=== PATIENT | female | born 1960 | race Caucasian/White ===

== ENCOUNTER 2016-07-31 20:54 | Emergency (ER) | payer OTHER ==
[~2016-07-31] VITALS: Ht 162.5 cm; Wt 67.1 kg
[~2016-07-31 20:54] MED LIST: ATIVAN1 MG PO; BLOOD PRESSURE MED; CELEXA40 MG PO; COLACE100 MG PO; FLEXERIL10 MG PO; FLEXERIL5 MG PO; GEODON20 MG PO; HYDROCODONE BIT1 T11 PO; LAMICTAL200 MG PO; MEDROL DOSEPAK4 MG PO; NORCO 325 MG-51 TAB PO; OXYCODONE5 MG PO; PREDNISONE20 MG PO; SYNTHROID0.1 MG PO; TOPAMAX25 M1 PO; TRAMADOL HCL50 MG PO; ULTRAM50 MG PO; VALIUM10 MG PO; VICODIN 5/500 505 MG; VICODIN 5/500 505 MG PO; XANAX XR1 MG; XANAX0.5 MG PO; XANAX1 MG PO; ZESTRIL10 MG PO; Zofran4 MG PO
[2016-07-31] MEDS ORDERED: 'XANAX1 MG PO (21:03)
== END 2016-07-31 22:18 | disposition home or self-care (01) ==
LOC: ED 20:54
DX: S92.514A Nondisplaced fracture of proximal phalanx of right lesser toe(s), initial encounter for closed fracture (principal); S90.31XA Contusion of right foot, initial encounter; F17.200 Nicotine dependence, unspecified, uncomplicated; Z90.710 Acquired absence of both cervix and uterus; Z79.899 Other long term (current) drug therapy; Z88.6 Allergy status to analgesic agent; W10.9XXA Fall (on) (from) unspecified stairs and steps, initial encounter; Y93.89 Activity, other specified; Y92.89 Other specified places as the place of occurrence of the external cause; Y99.9 Unspecified external cause status

== ENCOUNTER 2016-08-31 13:21 | Emergency (ER) | payer OTHER ==
[~2016-08-31] VITALS: Wt 67.1 kg
[~2016-08-31 13:21] MED LIST changes: +'XANAX1 MG PO
[2016-08-31] MEDS ORDERED: BACTRIM DS 8001 TA1 PO (13:42)
[2016-08-31] MEDS ORDERED: KEFLEX500 M1 PO (13:42)
[2016-08-31] MEDS ORDERED: TOBREX OPHTH S2.5 ML OPH (13:42)
== END 2016-08-31 14:01 | disposition home or self-care (01) ==
LOC: ED 13:21
DX: H00.015 Hordeolum externum left lower eyelid (principal); F17.200 Nicotine dependence, unspecified, uncomplicated; Z88.6 Allergy status to analgesic agent; Z79.899 Other long term (current) drug therapy

== ENCOUNTER 2020-12-27 19:02 | Emergency (ER) | payer SELFPAY ==
[~2020-12-27] VITALS: Ht 162.5 cm; Wt 86.2 kg
[~2020-12-27 19:02] MED LIST changes: +BACTRIM DS 8001 TA1 PO; +KEFLEX500 M1 PO; +TOBREX OPHTH S2.5 ML OPH
[2020-12-27] MEDS ORDERED: TRAZODONE100 MG PO (19:21)
[2020-12-27] MEDS ORDERED: LISINOPRIL40 MG PO (19:21)
[2020-12-27] MEDS ORDERED: SYNTHROID,LEV125 MCG PO (19:21)
[2020-12-27] MEDS ORDERED: ADVAIR 250/501 EA INH (19:23)
[2020-12-27] MEDS ORDERED: VENT7GM INH (19:23)
[2020-12-27 20:10] LABS: BASO # 0.1 10*3/uL (0.0-0.1); BASO % 0.6 % (0.0-1.0); EOS # 0.2 10*3/uL (0.0-0.4); EOS % 1.2 % (1.0-4.0); HEMATOCRIT 56.9 % (37.0-47.0); LYMPH % 21.9 % (27.0-41.0); MEAN CELL VOLUME 94.2 fl (81.0-99.0); MEAN CORPUSCULAR HGB 30.3 pg (27.0-31.0); MEAN CORPUSCULAR HGB CONC 32.2 g/dl (33.0-37.0); MEAN PLATELET VOLUME 11.8 fl (9.6-12.3); MONO # 0.8 10*3/uL (0.1-1.0); NEUT # 9.5 10*3/uL (2.3-7.9); NEUT % 69.3 % (47.0-73.0); PLATELET COUNT AUTOMATED 261 10*3/uL (130-400); RED BLOOD COUNT 6.04 10*6/uL (4.10-5.10); RED CELL DISTRI WIDTH 14.2 % (0-14.5); WHITE BLOOD COUNT 13.7 10*3/uL (4.8-10.8)
[2020-12-27 20:29] LABS: ALBUMIN 3.1 gm/dl (3.1-4.5); ALKALINE PHOSPHATASE 164 U/L (45-117); BUN 10 mg/dl (7-24); CHLORIDE 95 mmol/L (98-107); CREATININE 0.99 mg/dL (0.55-1.02); POTASSIUM 4.3 mmol/L (3.5-5.1); SGOT/AST 50 IU/L (3-35); SGPT/ALT 124 U/L (12-78); SODIUM 131 mmol/L (136-145); TOTAL PROTEIN 8.6 gm/dL (6.4-8.2)
[2020-12-27 20:30] LABS: ACT PARTIAL THROMBO TIME 26.1 SECONDS (20.0-32.1)
[2020-12-27 20:35] LABS: TROPONIN I < 0.015 ng/ml (<0.045)
[2020-12-27] MEDS ORDERED: LEVOFLOXACIN750 M2 PO (22:07)
[2020-12-27] MEDS ORDERED: PREDNISONE20 M1 PO (22:07)
== END 2020-12-27 22:23 | disposition left against medical advice (07) ==
LOC: ED 19:02
PROVIDERS: Emergency Medicine
DX: J44.1 Chronic obstructive pulmonary disease with (acute) exacerbation (principal); Z20.822 Contact with and (suspected) exposure to COVID-19; M70.51 Other bursitis of knee, right knee; M17.11 Unilateral primary osteoarthritis, right knee; Z88.8 Allergy status to other drugs, medicaments and biological substances; Z79.899 Other long term (current) drug therapy; F17.200 Nicotine dependence, unspecified, uncomplicated

== ENCOUNTER 2021-04-10 17:49 | Emergency (ER) | payer SELFPAY ==
[~2021-04-10] VITALS: Wt 93.4 kg
[~2021-04-10 17:49] MED LIST changes: +ADVAIR 250/501 EA INH; +LEVOFLOXACIN750 M2 PO; +LISINOPRIL40 MG PO; +PREDNISONE20 M1 PO; +SYNTHROID,LEV125 MCG PO; +TRAZODONE100 MG PO; +VENT7GM INH
[2021-04-10 18:15] LABS: BASO # 0.1 10*3/uL (0.0-0.1); BASO % 0.6 % (0.0-1.0); EOS # 0.2 10*3/uL (0.0-0.4); EOS % 1.6 % (1.0-4.0); HEMATOCRIT 57.2 % (37.0-47.0); LYMPH # 3.2 10*3/uL (1.3-4.4); LYMPH % 22.5 % (27.0-41.0); MEAN CELL VOLUME 87.5 fl (81.0-99.0); MEAN CORPUSCULAR HGB 28.7 pg (27.0-31.0); MEAN CORPUSCULAR HGB CONC 32.9 g/dl (33.0-37.0); MEAN PLATELET VOLUME 10.9 fl (9.6-12.3); MONO # 0.9 10*3/uL (0.1-1.0); MONO % 6.3 % (3.0-9.0); NEUT # 9.5 10*3/uL (2.3-7.9); NEUT % 67.8 % (47.0-73.0); PLATELET COUNT AUTOMATED 229 10*3/uL (130-400); RED BLOOD COUNT 6.54 10*6/uL (4.10-5.10); RED CELL DISTRI WIDTH 18.8 % (0-14.5); WHITE BLOOD COUNT 14.1 10*3/uL (4.8-10.8)
[2021-04-10 18:30] LABS: ACT PARTIAL THROMBO TIME 28.2 SECONDS (20.0-32.1)
[2021-04-10 18:42] LABS: ALBUMIN 3.2 gm/dl (3.1-4.5); ALKALINE PHOSPHATASE 111 U/L (45-117); BUN 12 mg/dl (7-24); CHLORIDE 97 mmol/L (98-107); CREATININE 1.07 mg/dL (0.55-1.02); POTASSIUM 4.7 mmol/L (3.5-5.1); SGOT/AST 32 IU/L (3-35); SGPT/ALT 44 U/L (12-78); SODIUM 131 mmol/L (136-145); TOTAL PROTEIN 8.5 gm/dL (6.4-8.2)
== END 2021-04-10 20:25 | disposition left against medical advice (07) ==
LOC: ED 17:49
PROVIDERS: Internal Medicine
DX: I11.0 Hypertensive heart disease with heart failure (principal); I50.9 Heart failure, unspecified; G43.909 Migraine, unspecified, not intractable, without status migrainosus; F17.200 Nicotine dependence, unspecified, uncomplicated; Z88.8 Allergy status to other drugs, medicaments and biological substances; Z79.899 Other long term (current) drug therapy; Z90.710 Acquired absence of both cervix and uterus; Z90.49 Acquired absence of other specified parts of digestive tract

== ENCOUNTER 2021-04-27 12:33 | Emergency (ER) | payer MEDICAID ==
[~2021-04-27] VITALS: Ht 165.1 cm; Wt 86.2 kg
[2021-04-27 13:32] LABS: BASO # 0.1 10*3/uL (0.0-0.1); BASO % 0.6 % (0.0-1.0); EOS # 0.2 10*3/uL (0.0-0.4); EOS % 1.6 % (1.0-4.0); LYMPH # 2.4 10*3/uL (1.3-4.4); LYMPH % 21.5 % (27.0-41.0); MEAN CELL VOLUME 88.3 fl (81.0-99.0); MEAN CORPUSCULAR HGB 29.2 pg (27.0-31.0); MEAN CORPUSCULAR HGB CONC 33.1 g/dl (33.0-37.0); MEAN PLATELET VOLUME 11.3 fl (9.6-12.3); MONO # 0.8 10*3/uL (0.1-1.0); MONO % 6.9 % (3.0-9.0); NEUT # 7.6 10*3/uL (2.3-7.9); NEUT % 68.5 % (47.0-73.0); PLATELET COUNT AUTOMATED 213 10*3/uL (130-400); RED BLOOD COUNT 6.23 10*6/uL (4.10-5.10); RED CELL DISTRI WIDTH 18.5 % (0-14.5); WHITE BLOOD COUNT 11.1 10*3/uL (4.8-10.8)
[2021-04-27 13:46] LABS: BUN 13 mg/dl (7-24); CHLORIDE 96 mmol/L (98-107); CREATININE 1.01 mg/dL (0.55-1.02); POTASSIUM 4.5 mmol/L (3.5-5.1); SODIUM 130 mmol/L (136-145)
[2021-04-27 14:29] LABS: BILIRUBIN Negative (Negative); BLOOD Negative (Negative); CLARITY Clear (Clear); COLOR Yellow (Yellow); GLUCOSE 1+ (Negative); KETONE Negative (Negative); LEUKO ESTERASE Trace (Negative); NITRITE Negative (Negative); PH 6.5 (4.5-8.0); UROBILINOGEN 0.2 E.U./dl (0.0-1.0)
[2021-04-27 14:50] LABS: BACTERIA TRACE; EPITHELIAL CELLS 16-20
[2021-04-27] MEDS ORDERED: AVPAK AZITHROM250 MG PO (15:28)
== END 2021-04-27 16:00 | disposition left against medical advice (07) ==
LOC: ED 12:33
PROVIDERS: Student in an Organized Health Care Education/Training Program
DX: E11.65 Type 2 diabetes mellitus with hyperglycemia (principal); R09.02 Hypoxemia; I10 Essential (primary) hypertension; G43.909 Migraine, unspecified, not intractable, without status migrainosus; Z88.8 Allergy status to other drugs, medicaments and biological substances; Z79.899 Other long term (current) drug therapy; Z90.710 Acquired absence of both cervix and uterus; Z90.49 Acquired absence of other specified parts of digestive tract

== ENCOUNTER 2021-09-29 15:57 | Emergency (ER) | payer MEDICAID ==
[~2021-09-29] VITALS: Wt 84.4 kg
[~2021-09-29 15:57] MED LIST changes: +AVPAK AZITHROM250 MG PO
[2021-09-29] MEDS ORDERED: VIBRAMYCIN100 MG PO (17:08)
== END 2021-09-29 17:25 | disposition home or self-care (01) ==
LOC: ED 15:57
DX: L03.011 Cellulitis of right finger (principal); E11.9 Type 2 diabetes mellitus without complications; I48.91 Unspecified atrial fibrillation; F17.200 Nicotine dependence, unspecified, uncomplicated; Z90.710 Acquired absence of both cervix and uterus; Z79.899 Other long term (current) drug therapy; Z79.2 Long term (current) use of antibiotics

== ENCOUNTER 2021-10-03 15:09 | Emergency (ER) | payer MEDICAID ==
[~2021-10-03] VITALS: Ht 162.5 cm; Wt 84.4 kg
[~2021-10-03 15:09] MED LIST changes: +VIBRAMYCIN100 MG PO
[2021-10-03] MEDS ORDERED: OXYCODONE HCL5 MG PO (17:09)
== END 2021-10-03 17:06 | disposition home or self-care (01) ==
LOC: ED 15:09
DX: M79.644 Pain in right finger(s) (principal); L60.8 Other nail disorders; Z79.899 Other long term (current) drug therapy; Z79.2 Long term (current) use of antibiotics

== ENCOUNTER → 2021-10-22 | Day surgery (SDC) | payer MEDICAID ==
[2021-10-14 14:32] LABS: BUN 8 mg/dl (7-24); CHLORIDE 104 mmol/L (98-107); POTASSIUM 4.4 mmol/L (3.5-5.1); SODIUM 135 mmol/L (136-145)
[~2021-10-22] VITALS: Ht 162.5 cm; Wt 84.4 kg
[~2021-10-22] MED LIST changes: +OXYCODONE HCL5 MG PO
[2021-10-22 07:43] VITALS: BP 130/91
[2021-10-22 08:40] VITALS: BP 133/93
[2021-10-22 08:53] VITALS: BP 123/85
[2021-10-22 09:07] VITALS: BP 123/85
[2021-10-23 10:07] LABS: ACID FAST SPEC PROCESSING Concentration (.)
== END | disposition home or self-care (01) ==
LOC: SDC 10-18 08:45
PROVIDERS: ATTEND Orthopaedic Surgery
DX: L03.011 Cellulitis of right finger (principal); G43.909 Migraine, unspecified, not intractable, without status migrainosus; F31.9 Bipolar disorder, unspecified; I10 Essential (primary) hypertension; E11.9 Type 2 diabetes mellitus without complications; J44.9 Chronic obstructive pulmonary disease, unspecified; F17.210 Nicotine dependence, cigarettes, uncomplicated; F41.9 Anxiety disorder, unspecified; Z90.49 Acquired absence of other specified parts of digestive tract; Z90.710 Acquired absence of both cervix and uterus; Z98.890 Other specified postprocedural states